=== PATIENT | male | born 1950 | race Caucasian/White ===

== ENCOUNTER → 2017-02-16 | Outpatient (CLI) | payer MEDICARE, MEDICAID ==
[~2017-02-16] MED LIST: ATOR80TA PO; CITA20TA5 PO; CLOP75TA52 PO; DIPH50CA PO; ENAL5TAB PO; GABA300C PO; HYDR-3307 PO; HYDR12.53 PO; HYDR25TA6 PO; NIAC500C3 PO; OMEP-110 PO; PRED20TA PO
[2017-02-16 10:55] LABS: BASOPHILS # (AUTO) 0.02 x10^3/uL (0-0.1); BASOPHILS % (AUTO) 0 % (0-1); EOSINOPHILS # (AUTO) 0.37 x10^3/uL (0-0.4); EOSINOPHILS % (AUTO) 5 % (1-7); LYMPHOCYTES % (AUTO) 26 % (22-44); MD NO; MEAN CORPUSCULAR HEMOGLOBIN 33.5 pg (27.5-34.5); MEAN CORPUSCULAR HGB CONC 34.6 g/dL (33.2-36.2); MEAN PLATELET VOLUME 8.8 fL (7.4-10.4); MONOCYTES # (AUTO) 0.94 x10^3/uL (0.2-0.8); MONOCYTES % (AUTO) 12 % (2-9); NEUTROPHILS # (AUTO) 4.57 x10^3/uL (1.8-6.8); NEUTROPHILS % (AUTO) 57 % (42-75); PLATELET COUNT 232 x10^3/uL (130-400); RED BLOOD COUNT 5.26 x10^6/uL (4.38-5.82); RED CELL DISTRIBUTION WIDTH 13.3 % (9.4-14.8)
[2017-02-16 11:06] LABS: ALBUMIN 3.8 g/dL (3.4-5.0); ANION GAP 8 mmol/L (5-15); CALCIUM 8.6 mg/dL (8.5-10.1); CHLORIDE 101 mmol/L (98-107)
[2017-02-16 11:10] LABS: ALANINE AMINOTRANSFERASE 26 U/L (12-78); ALKALINE PHOSPHATASE 86 U/L (45-117); BILIRUBIN,TOTAL 0.6 mg/dL (0.2-1.0); CHOL/HDL RATIO 5.7; CHOLESTEROL, TOTAL 233 mg/dL (140-239); CREATININE 0.74 mg/dL (0.7-1.3); HDL CHOL % 18 % (26-37); HDL CHOLESTEROL (DIRECT) 41 mg/dL (40-60); LDL CHOLESTEROL,CALCULATED 144 mg/dL (54-169); LDL/HDL RATIO 3.5 (0.5-3.0); TOTAL PROTEIN 7.8 g/dL (6.4-8.2); TRIGLYCERIDES 241 mg/dL (50-200); VLDL CHOLESTEROL 48 mg/dL (0-25)
[2017-02-16 12:25] LABS: HEMOGLOBIN A1C 5.9 % (4.2-6.3)
== END ==
LOC: CFH 08:58
PROVIDERS: ATTEND Internal Medicine Cardiovascular Disease
DX: I10 Essential (primary) hypertension (principal); E78.2 Mixed hyperlipidemia; E87.6 Hypokalemia; I25.10 Atherosclerotic heart disease of native coronary artery without angina pectoris; R73.01 Impaired fasting glucose
CPT/HCPCS: 36415; 80053; 80061; 83036; 85025

== ENCOUNTER → 2017-10-11 | Outpatient (CLI) | payer MEDICARE, MEDICAID ==
[~2017-10-11] MED LIST changes: -CITA20TA5 PO; +CITA20TA6 PO
[2017-10-11 09:52] LABS: ANION GAP 6 mmol/L (5-15); CALCIUM 8.7 mg/dL (8.5-10.1); CHLORIDE 105 mmol/L (98-107)
[2017-10-11 09:55] LABS: CREATININE 0.95 mg/dL (0.7-1.3)
[2017-10-11 09:56] LABS: ALANINE AMINOTRANSFERASE 36 U/L (12-78); ALKALINE PHOSPHATASE 116 U/L (45-117); BILIRUBIN,TOTAL 0.6 mg/dL (0.2-1.0); CHOL/HDL RATIO 4.4; CHOLESTEROL, TOTAL 197 mg/dL (140-239); HDL CHOL % 23 % (26-37); HDL CHOLESTEROL (DIRECT) 45 mg/dL (40-60); LDL CHOLESTEROL,CALCULATED 105 mg/dL (54-169); LDL/HDL RATIO 2.3 (0.5-3.0); TOTAL PROTEIN 7.6 g/dL (6.4-8.2); TRIGLYCERIDES 236 mg/dL (50-200); VLDL CHOLESTEROL 47 mg/dL (0-25)
[2017-10-11 10:07] LABS: HEMOGLOBIN A1C 5.7 % (4.2-6.3)
== END | disposition home or self-care (01) ==
LOC: LAB 09:08
PROVIDERS: ATTEND Family Medicine
DX: I10 Essential (primary) hypertension (principal); R73.9 Hyperglycemia, unspecified; E78.2 Mixed hyperlipidemia
CPT/HCPCS: 36415; 80053; 80061; 82043; 83036

== ENCOUNTER 2017-11-16 10:08 | Emergency (ER) | payer MEDICARE, MEDICAID ==
[~2017-11-16] VITALS: Ht 165.1 cm; Wt 88.6 kg
[2017-11-16 10:16] VITALS: BP 174/93
== END 2017-11-16 11:08 | disposition home or self-care (01) ==
LOC: ED 11:02
DX: J30.2 Other seasonal allergic rhinitis (principal); I10 Essential (primary) hypertension; I25.10 Atherosclerotic heart disease of native coronary artery without angina pectoris; E78.00 Pure hypercholesterolemia, unspecified; G89.29 Other chronic pain; Z86.718 Personal history of other venous thrombosis and embolism; Z91.041 Radiographic dye allergy status; Z88.5 Allergy status to narcotic agent; E11.9 Type 2 diabetes mellitus without complications
CPT/HCPCS: 99283

== ENCOUNTER 2018-03-16 18:58 | Emergency (ER) | payer MEDICARE, MEDICAID ==
[~2018-03-16] VITALS: Ht 165.1 cm; Wt 89.0 kg
[~2018-03-16 18:58] MED LIST changes: +HYDR12.517 PO; -HYDR12.53 PO
--- NOTE | 2018-03-16 19:03 | NUR ---
PT AMBULATED TO ROOM WITH EMS STAFF. CLAMP TO NOSE. PT REPORTS HAVING INTERMITTENT NOSE BLEED X3 DAYS. PT STATES HE HAS BEEN SICK AND CONGESTED, NOSE STARTED BLEEDING BUT EVERY TIME HE BLOWS HIS NOSE OR SNEEZES IT BLEEDS AGAIN. TONIGHT PT NOSE STARTED TO BLEED X1 HOUR AGO AND HAS NOT STOPPED. DESPITE CLAMP PT NOSE SLIGHTLY DRIPPING BLOOD AT UPON ARRIVAL. PT DENIES FEELING BLOOD DRIPPING DOWN HIS THROAT. PT ON PLAVIX. PT A/OX4, BREATHING E/U. CONVERSING WELL. NO DISTRESS NOTED. AWAITING MD STEVE.
--- NOTE | 2018-03-16 19:50 | NUR ---
MD TO BEDSIDE FOR TX SPRAY TO NOSE. CLAMP CONTINUES IN PLACE.
[2018-03-16] MEDS ORDERED: OXYMETAZOLINE NASAL SPRAY 0.05%, 15ML ONE (20:25)
--- NOTE | 2018-03-16 20:26 | NUR ---
EFERIN AT BEDSIDE FOR PROVIDER.
[2018-03-16] MEDS ORDERED: OXYMETAZOLINE NASAL SPRAY 0.05%, 15ML NAS ONE (20:30)
--- NOTE | 2018-03-16 20:50 | NUR ---
SPRAY AT BEDSIDE, PROVIDER TO BEDSIDE FOR SPRAY APPLICATION COMPLETE. BLEEDING APPEARS TO BE SLOWING.
[2018-03-16 21:24] VITALS: BP 145/82
--- NOTE | 2018-03-16 21:31 | NUR ---
PROVIDER TO BEDSIDE FOR D/C INSTRUCTIONS. PT TO D/C.
--- NOTE | 2018-03-16 21:59 | NUR ---
AWAITING D/C PAPERWORK. PRINTING AT THIS TIME. PT AMBULATED TO DESK FOR PAPERWORK WITH STEADY GAIT. NOSE BLEED CONTROLLED. NO BLEEDING NOTED.
== END 2018-03-16 22:13 | disposition home or self-care (01) ==
LOC: ED 22:01
DX: R04.0 Epistaxis (principal); M54.9 Dorsalgia, unspecified; G89.29 Other chronic pain; E78.00 Pure hypercholesterolemia, unspecified; I25.10 Atherosclerotic heart disease of native coronary artery without angina pectoris; I10 Essential (primary) hypertension; Z86.19 Personal history of other infectious and parasitic diseases; Z88.6 Allergy status to analgesic agent
CPT/HCPCS: 99283

== ENCOUNTER 2018-03-17 05:58 | Emergency (ER) | payer MEDICARE, MEDICAID ==
[~2018-03-17] VITALS: Ht 167.6 cm; Wt 90.0 kg
[2018-03-17 06:10] VITALS: BP 155/81
--- NOTE | 2018-03-17 06:15 | NUR ---
BLEEDING CONTROLLED AT THIS TIME WITH CLAMP IN PLACE.
[2018-03-17] MEDS ORDERED: COCAINE TOPICAL SOLN 4%, 4ML ONE (06:16)
--- NOTE | 2018-03-17 06:19 | NUR ---
PROVIDER TO BEDSIDE FOR PT TX, COCAINE MEDICATION PULLED AND GIVEN TO PROVIDER. PROVIDER ADMINISTERING COCAINE MEDICATION. PT ALSO TO HAVE A RHINO ROCKET PLACED.
[2018-03-17] MEDS ORDERED: COCAINE TOPICAL SOLN 4%, 4ML TP ONE (06:30)
--- NOTE | 2018-03-17 06:38 | NUR ---
LAB IN ROOM FOR BLOOD DRAW.
--- NOTE | 2018-03-17 07:04 | NUR ---
REPORT TO DERRICK RIVERA.
--- NOTE | 2018-03-17 07:10 | NUR ---
patient seated in ENT chair, reports no sensation of blood down back of throat, PA Bronson at bedside now.
--- NOTE | 2018-03-17 08:03 | NUR ---
patient ambulating to discharge desk now, blue-tinged gauze in place in L nare and patient endorses that the cocaine solution was used to achieve hemostasis. All discharge instructions reviewed and questions answered, patient has been advised to remove packing at home in 48 hrs and return to ER if bleeding continues. VSS, PWD, NAD, no bleeding at time of discharge.
== END 2018-03-17 08:05 | disposition home or self-care (01) ==
LOC: ED 06:33
DX: R04.0 Epistaxis (principal); R09.81 Nasal congestion; E11.9 Type 2 diabetes mellitus without complications; I10 Essential (primary) hypertension; F32.9 Major depressive disorder, single episode, unspecified; I25.10 Atherosclerotic heart disease of native coronary artery without angina pectoris; E78.00 Pure hypercholesterolemia, unspecified; Z86.19 Personal history of other infectious and parasitic diseases
CPT/HCPCS: 30901; 36415; 85014; 85018; 99284

== ENCOUNTER 2018-03-29 11:46 | Emergency (ER) | payer MEDICARE, MEDICAID ==
[~2018-03-29] VITALS: Ht 165.1 cm; Wt 79.5 kg
[2018-03-29] MEDS ORDERED: CITA10TA4 PO (12:04)
--- NOTE | 2018-03-29 12:05 | NUR ---
Pt brought in by EMS with complaints of epistaxis starting approximately 45 minutes ago after coughing. Pt states, "I was here last week and had to have my nose packed from this." NADN. Pt ambulatory with steady gait and balance to [facility]. PT connected to NIBP and continous pulse ox. All safety measures in place. ENT cart in room and nose clip applied. Pt has call light within reach. No needs expressed at this time. Suction set up at bedside. Pt is AOX4, skin is pink, warm, and dry, and pt has unlabored respirations equal bilaterally and is able to swallow his own secretions. PT denies nausea, vomitting, or trauma.
[2018-03-29] MEDS ORDERED: OXYMETAZOLINE NASAL SPRAY 0.05%, 15ML ONE (12:28)
[2018-03-29] MEDS ORDERED: OXYMETAZOLINE NASAL SPRAY 0.05%, 15ML NAS ONE (12:30)
[2018-03-29 14:01] VITALS: BP 147/69
--- NOTE | 2018-03-29 14:01 | NUR ---
BREAK RN: pt upright on gurney awake & comfortable, responds approp to staff, NAD, comfort measures provided, call light within reach.
--- NOTE | 2018-03-29 14:31 | NUR ---
Patient given discharge instructions and they have confirmed that they understand the instructions. Patient ambulatory with steady gait.
== END 2018-03-29 14:32 | disposition home or self-care (01) ==
LOC: ED 14:30
DX: R04.0 Epistaxis (principal); I25.10 Atherosclerotic heart disease of native coronary artery without angina pectoris; I10 Essential (primary) hypertension; E78.00 Pure hypercholesterolemia, unspecified; E11.9 Type 2 diabetes mellitus without complications; F32.9 Major depressive disorder, single episode, unspecified; Z86.19 Personal history of other infectious and parasitic diseases
CPT/HCPCS: 99282; 99283

== ENCOUNTER → 2018-12-27 | Outpatient (CLI) | payer MEDICARE, MEDICAID ==
[~2018-12-27] MED LIST changes: +CITA10TA4 PO; -HYDR-3307 PO; +HYDR-36 PO; +REGADENOSON 0.4 MG/5 ML SYRINGE ONE
== END | disposition home or self-care (01) ==
LOC: CFH 07:00
PROVIDERS: ATTEND Registered Nurse
DX: I08.0 Rheumatic disorders of both mitral and aortic valves (principal); I70.213 Atherosclerosis of native arteries of extremities with intermittent claudication, bilateral legs; R06.02 Shortness of breath; M79.669 Pain in unspecified lower leg; F17.200 Nicotine dependence, unspecified, uncomplicated; F12.10 Cannabis abuse, uncomplicated; F10.20 Alcohol dependence, uncomplicated; Z86.718 Personal history of other venous thrombosis and embolism; Z91.048 Other nonmedicinal substance allergy status; I10 Essential (primary) hypertension; E78.5 Hyperlipidemia, unspecified; I25.2 Old myocardial infarction; Z95.818 Presence of other cardiac implants and grafts
CPT/HCPCS: 0399T; 78452; 93017; 93306; A9502; J2785

== ENCOUNTER → 2019-04-14 | Outpatient (CLI) | payer MEDICARE, MEDICAID ==
[~2019-04-14] MED LIST changes: -REGADENOSON 0.4 MG/5 ML SYRINGE ONE
[2019-04-14 13:07] LABS: ALBUMIN 3.6 g/dL (3.4-5.0)
[2019-04-14 13:10] LABS: BILIRUBIN, DIRECT 0.1 mg/dL (0.1-0.2); BILIRUBIN,INDIRECT 0.4 mg/dL (0.0-2.0); BILIRUBIN,TOTAL 0.5 mg/dL (0.2-1.0); CHOL/HDL RATIO 4.5; LDL/HDL RATIO 2.6 (0.5-3.0); TOTAL PROTEIN 7.3 g/dL (6.4-8.2)
== END | disposition home or self-care (01) ==
LOC: CFH 09:41
PROVIDERS: ATTEND Internal Medicine Cardiovascular Disease
DX: E78.2 Mixed hyperlipidemia (principal); I10 Essential (primary) hypertension; R73.01 Impaired fasting glucose
CPT/HCPCS: 36415; 80061; 80076; 83036